=== PATIENT | female | born 1995 | race Two or more races ===

== ENCOUNTER 2024-07-06 12:52 | Inpatient (IN) | payer OTHER ==
[~2024-07-06] VITALS: Ht 160 cm; Wt 86.2 kg
[~2024-07-06 12:52] MED LIST: PRENATABS RX T1 EACH PO
[2024-07-06 13:19] VITALS: BP 90/57
[2024-07-06 13:57] LABS: HEMATOCRIT 38.1 % (36.0-45.00); HEMOGLOBIN 12.6 g/dL (12.0-15.00); MEAN CELL VOLUME 94.2 fL (80.00-100.00); MEAN CORPUSCULAR HEMOGLOBIN 31.3 pg (27.00-32.0); MEAN CORPUSCULAR HGB CONC 33.2 g/dl (32.0-36.0); PLATELET COUNT 235 K/uL (150-450); RED BLOOD COUNT 4.04 M/uL (4.00-6.00); RED CELL DISTRIBUTION WIDTH 13.1 % (11.5-14.5)
[2024-07-06] MEDS ORDERED: PRENATAL CAPLE1 EAC1 PO (14:20)
[2024-07-06 14:21] LABS: URINE APPEARANCE Clear; URINE BILIRRUBIN Small (NEGATIVE); URINE BLOOD Negative; URINE COLOR Dark Yellow; URINE GLUCOSE Negative (NEGATIVE); URINE LEUKOCYTE Negative; URINE NITRATE Negative; URINE PROTEIN Trace (NEGATIVE)
[2024-07-06 14:24] LABS: URINE EPITHELIAL CELLS 64.4 uL (0.0-38.8); URINE RBC 10.5 uL (0.0-20.8); URINE WBC 17.6 uL (0.0-23.2)
[2024-07-06 14:33] LABS: INR 0.95; PARTIAL THROMBOPLASTIN TIME 27.7 SECONDS (22.0-34.0); PROTHROMBIN TIME 10.4 SECONDS (9.0-11.5)
[2024-07-06 14:50] LABS: URINE CAST 0.15 uL (0.0-1.40); URINE KETONE >=160 (NEGATIVE); URINE MUCUS HEAVY
[2024-07-06 15:13] VITALS: BP 102/67
[2024-07-06] MEDS ORDERED: CEFOXITIN SODIUM 2,000 MG VIAL IV ONE (18:00)
[2024-07-06] MEDS ORDERED: ERYTHROMYCIN BASE OPHT 1GM EACH TUBE OP ONE (18:00)
[2024-07-06] MEDS ORDERED: OXYTOCIN 10 UNITS/ML VIAL IV ONE (18:00)
[2024-07-06] MEDS ORDERED: KETOROLAC TROMETHAMINE 60 MG VIAL IM STA (18:56)
[2024-07-06] MEDS ORDERED: PROMETHAZINE HCL 25 MG/ML AMPUL IM PRN (19:00)
[2024-07-06] MEDS ORDERED: CHLORHEXIDINE GLUCONATE 120 ML BOTTLE TOP ONE (19:00)
[2024-07-06] MEDS ORDERED: RINGERS SOLUTION,LACTATED 1,000 ML IV SCH (19:00)
[2024-07-06] MEDS ORDERED: MEPERIDINE HCL/PF 50 MG/ML VIAL IM PRN (19:00)
[2024-07-06] MEDS ORDERED: OXYTOCIN 1,000 ML IV SCH (19:00)
[2024-07-06] MEDS ORDERED: MORPHINE SULFATE 2 MG/ML CARTRIDGE IV ONE (19:10)
[2024-07-06] MEDS ORDERED: MORPHINE SULFATE 4 MG/ML VIAL IV ONE (20:50)
[2024-07-06 22:25] VITALS: BP 129/76
[2024-07-06 22:59] LABS: HEMATOCRIT 31.3 % (36.0-45.00); MEAN CELL VOLUME 94.6 fL (80.00-100.00); MEAN CORPUSCULAR HGB CONC 34.3 g/dl (32.0-36.0); PLATELET COUNT 200 K/uL (150-450); RED BLOOD COUNT 3.31 M/uL (4.00-6.00)
[2024-07-06 23:17] LABS: HEMOGLOBIN 10.7 g/dL (12.0-15.00); MEAN CORPUSCULAR HEMOGLOBIN 32.3 pg (27.00-32.0)
[2024-07-07 01:24] VITALS: BP 111/69
[2024-07-07 08:00] VITALS: BP 114/56
[2024-07-07] MEDS ORDERED: OxyCODONE HCL/APAP UD (PERCOCET) PO PRN (09:00)
[2024-07-07] MEDS ORDERED: FF) RHO(D) IMMUNE GLOBULIN (POM) IM NR (13:30)
[2024-07-07 16:00] VITALS: BP 104/63
[2024-07-08 01:11] VITALS: BP 100/60
[2024-07-08 08:00] VITALS: BP 101/66
[2024-07-08 16:00] VITALS: BP 95/56
[2024-07-09 00:52] VITALS: BP 100/60
[2024-07-09 07:46] VITALS: BP 95/60
== END 2024-07-09 17:33 | disposition home or self-care (01) | DRG 785 ==
LOC: LDR 12:52 → OB/GYN 12:52 → O/R 18:41 → OB/GYN 19:48
PROVIDERS: ADMIT Obstetrics & Gynecology; ATTEND Obstetrics & Gynecology
PROC: 0UB70ZZ Excision of Bilateral Fallopian Tubes, Open Approach (ICD-10-PCS; 2024-07-06)
PROC: 4A1HXCZ Monitoring of Products of Conception, Cardiac Rate, External Approach (ICD-10-PCS; 2024-07-06)
PROC: 10D00Z1 Extraction of Products of Conception, Low, Open Approach (ICD-10-PCS; principal; 2024-07-06 18:30)
DX: O34.211 Maternal care for low transverse scar from previous cesarean delivery (principal); Z30.2 Encounter for sterilization; Z3A.39 39 weeks gestation of pregnancy; Z37.0 Single live birth; Z20.822 Contact with and (suspected) exposure to COVID-19